=== PATIENT | female | born 1990 | race Caucasian/White ===

== ENCOUNTER 2019-04-24 20:22 | Emergency (ER) | payer BC ==
[2019-04-24] MEDS ORDERED: Sodium Chloride 0.9% 10 ML Syringe FLUSH PRN (20:52)
[2019-04-24] MEDS ORDERED: Diatrizoate Meglumine/Diatrizoate Sodium 37% 30 ML Bottle PO ONE (21:18)
--- NOTE | 2019-04-24 21:42 | EDM.PDOC ---
ED HPI GENERAL MEDICAL PROBLEM - General Chief Complaint: Abdominal Pain Stated Complaint: abdominal and back pain Time Seen by Provider: 04/24/19 20:30 Source of Information: Reports: Patient History Limitations: Reports: No Limitations - History of Present Illness INITIAL COMMENTS - FREE TEXT/NARRATIVE: Patient is a 28-year-old who comes in with chief complaint of epigastric pain states that for about a week has had increased epigastric pain there are certain foods that make it worse but also notes bothered her she says greasy foods like hamburgers make it worse. Onset: Gradual Duration: Week(s):, Getting Worse Location: Reports: Abdomen Quality: Reports: Ache, Stabbing (Radiating to the back) Severity: Moderate Improves with: Reports: None Worsens with: Reports: Eating Associated Symptoms: Reports: No Other Symptoms - Related Data Allergies Allergy/AdvReac Type Severity Reaction Status Date / Time No Known Allergies Allergy Verified 04/24/19 20:23 Home Meds: Home Meds Ibuprofen 400 mg PO ONETIME 04/24/19 [History] Past Medical History - Past Health History Medical/Surgical History: Denies Medical/Surgical History ED ROS GENERAL - Review of Systems Review Of Systems: See Below Constitutional: Reports: No Symptoms HEENT: Reports: No Symptoms Respiratory: Reports: No Symptoms Cardiovascular: Reports: No Symptoms Endocrine: Reports: No Symptoms GI/Abdominal: Reports: Abdominal Pain, Nausea, Other (Epigastric pain nausea) : Reports: No Symptoms Musculoskeletal: Reports: No Symptoms Skin: Reports: No Symptoms Neurological: Reports: No Symptoms, Pre-Existing Deficit, Other Psychiatric: Reports: No Symptoms Hematologic/Lymphatic: Reports: No Symptoms Immunologic: Reports: No Symptoms ED EXAM, GI/ABD - Physical Exam Exam: See Below Exam Limited By: No Limitations General Appearance: Alert, WD/WN, Mild Distress Eyes: Bilateral: Normal Appearance, EOMI Ears: Normal External Exam, Normal Canal, Hearing Grossly Normal, Normal TMs Nose: Normal Inspection, Normal Mucosa, No Blood Throat/Mouth: Normal Inspection, Normal Lips, Normal Teeth, Normal Gums, Normal Oropharynx, Normal Voice, No Airway Compromise Head: Atraumatic, Normocephalic Neck: Normal Inspection, Supple, Non-Tender, Full Range of Motion Respiratory/Chest: No Respiratory Distress, Lungs Clear, Normal Breath Sounds, No Accessory Muscle Use, Chest Non-Tender Cardiovascular: Normal Peripheral Pulses, Regular Rate, Rhythm, No Edema, No Gallop, No JVD, No Murmur, No Rub GI/Abdominal Exam: Normal Bowel Sounds, Soft, No Mass, Tender (Patient had a positive Richardson test) Back Exam: Normal Inspection, Full Range of Motion, NT Extremities: Normal Inspection, Normal Range of Motion, Non-Tender, Normal Capillary Refill, No Pedal Edema Neurological: Alert, Oriented, CN II-XII Intact, Normal Cognition, Normal Gait, Normal Reflexes, No Motor/Sensory Deficits Psychiatric: Normal Affect, Normal Mood Skin Exam: Warm, Dry, Intact, Normal Color, No Rash Lymphatic: No Adenopathy Course - Vital Signs Last Recorded V/S: Last Vital Signs Temp 99.1 F 04/24/19 20:31 Pulse 103 H 04/24/19 20:31 Resp 17 04/24/19 20:31 BP 108/74 04/24/19 20:31 Pulse Ox 100 04/24/19 20:31 - Orders/Labs/Meds Orders: Active Orders 24 hr Category Date Time Status Abdomen Pelvis w Cont [CT] Stat Exams 04/24/19 20:48 Taken Sodium Chloride 0.9% [Saline Flush] Med 04/24/19 20:52 Active 10 ml FLUSH ASDIRECTED PRN Saline Lock Insert [OM.PC] Stat Oth 04/24/19 20:53 Ordered Medication Orders Sodium Chloride (Saline Flush) 10 ml FLUSH ASDIRECTED PRN PRN Reason: Keep Vein Open Last Admin: 04/24/19 22:39 Dose: 10 ml Labs: Laboratory Tests 04/24/19 04/24/19 04/24/19 Range/Units 21:40 21:40 21:40 WBC 3.9 L (4.0-10.2) K/uL RBC 4.21 (3.77-5.09) M/uL Hgb 12.8 (11.7-15.5) g/dL Hct 38.5 (34.0-46.0) % MCV 91.4 (84.0-98.0) fL MCH 30.4 (28.2-33.3) pg MCHC 33.2 (31.7-36.0) g/dL RDW 12.6 (11.2-14.1) % Plt Count 167 (150-350) K/uL Neut % (Auto) 71.7 (45.0-80.0) % Lymph % (Auto) 19.7 (10.0-50.0) % [place] % (Auto) 7.3 (2.0-14.0) % Eos % (Auto) 1.0 (0.0-5.0) % Baso % (Auto) 0.3 (0.0-2.0) % Neut # (Auto) 2.76 (1.40-7.00) K/uL Lymph # (Auto) 0.76 (0.50-3.50) K/uL [place] # (Auto) 0.28 (0.00-1.00) K/uL Eos # (Auto) 0.04 (0.00-0.50) K/uL Baso # (Auto) 0.01 (0.00-0.20) K/uL Sodium 138 (136-145) mmol/L Potassium 3.2 L (3.5-5.1) mmol/L Chloride 102 (98-107) mmol/L Carbon Dioxide 25.5 (21.0-32.0) mmol/L BUN 5 L (7-18) mg/dL Creatinine 0.66 (0.51-1.17) mg/dL Est Cr Clr Drug Dosing 91.79 mL/min Estimated GFR (MDRD) > 60 mL/min Glucose 90 (74-106) mg/dL Calcium 9.3 (8.5-10.1) mg/dL Total Bilirubin 0.3 (0.2-1.0) mg/dL AST 22 (15-37) U/L ALT 14 (12-78) U/L Alkaline Phosphatase 61 (46-116) IU/L Total Protein 7.7 (6.4-8.2) g/dL Albumin 3.6 (3.4-5.0) g/dL HCG, Qual Negative (NEGATIVE) Meds: Medications Generic Name Dose Route Start Last Admin Trade Name Freq PRN Reason Stop Dose Admin Sodium Chloride 10 ml 04/24/19 20:52 04/24/19 22:39 Saline Flush FLUSH 10 ml ASDIRECTED PRN Administration Keep Vein Open Discontinued Medications Generic Name Dose Route Start Last Admin Trade Name Freq PRN Reason Stop Dose Admin Diatrizoate Meglum/Diatrizoate Sod 30 ml 04/24/19 21:18 Gastrografin 37% PO 04/24/19 21:19 ONETIME ONE Pantoprazole Sodium 40 mg/ 100 mls @ 200 mls/hr 04/24/19 22:04 Sodium Chloride IV 04/24/19 22:33 ONETIME ONE Iopamidol 100 ml 04/24/19 22:15 04/24/19 22:21 Isovue-300 (61%) IVPUSH 04/24/19 22:16 100 ml ONETIME ONE Administration Pantoprazole Sodium 40 mg 04/24/19 22:37 04/24/19 22:39 Protonix Iv IVPUSH 04/24/19 22:38 40 mg ONETIME ONE Administration Silver Sulfadiazine 1 gm 04/25/19 08:00 Silvadene 1% Cream 20 Gm TOP BID TRINITY Departure - Departure Time of Disposition: 23:13 Disposition: Home, Self-Care 01 Clinical Impression: Epigastric pain - Discharge Information *PRESCRIPTION DRUG MONITORING PROGRAM REVIEWED*: No *COPY OF PRESCRIPTION DRUG MONITORING REPORT IN PATIENT EFREN: No Referrals: Jean Fotser MD [Primary Care Provider] - Forms: ED Department Discharge Care Plan Goals: Patient was seen in the ER and examined at this time a CT of the abdomen was performed to rule out cholecystitis?cholelithiasis CT showed a contracted gallbladder with no wall thickening at this time patient is feeling better we' ll send her home on omeprazole 20 mg twice a day patient is to follow-up with primary at this time and consider getting a surgical consult for possible gastroscopy. - My Orders Last 24 Hours: My Active Orders 04/24/19 20:48 Abdomen Pelvis w Cont [CT] Stat 04/24/19 20:52 Sodium Chloride 0.9% [Saline Flush] 10 ml FLUSH ASDIRECTED PRN 04/24/19 20:53 Saline Lock Insert [OM.PC] Stat - Assessment/Plan Last 24 Hours: My Active Orders 04/24/19 20:48 Abdomen Pelvis w Cont [CT] Stat 04/24/19 20:52 Sodium Chloride 0.9% [Saline Flush] 10 ml FLUSH ASDIRECTED PRN 04/24/19 20:53 Saline Lock Insert [OM.PC] Stat
[2019-04-24 21:58] LABS: CHLORIDE,CL 102 mmol/L (98-107); SODIUM,NA 138 mmol/L (136-145)
[2019-04-24] MEDS ORDERED: Pantoprazole 40 MG in Sodium Chloride 0.9% 100 ML IV ONE (22:04)
[2019-04-24] MEDS ORDERED: Iopamidol 612 MG/ML 100 ML Bottle IVPUSH ONE (22:15)
[2019-04-24] MEDS ORDERED: Pantoprazole 40 MG Vial IVPUSH ONE (22:37)
[2019-04-25] MEDS ORDERED: Silver Sulfadiazine 1% Crm 20 GM Tube TOP SCH (08:00)
== END 2019-04-24 23:43 | disposition home or self-care (01) ==
LOC: LL.ED 20:22
DX: R10.13 Epigastric pain (principal)
CPT/HCPCS: 36415; 74177; 80053; 84703; 85025; 96374; 99284; C9113; Q9963; Q9967

== ENCOUNTER 2019-08-22 21:34 | Emergency (ER) | payer BC ==
--- NOTE | 2019-08-22 22:32 | EDM.PDOC ---
ED HPI GENERAL MEDICAL PROBLEM - General Chief Complaint: General Stated Complaint: heavy menstration Time Seen by Provider: 08/22/19 22:17 Source of Information: Reports: Patient History Limitations: Reports: No Limitations - History of Present Illness INITIAL COMMENTS - FREE TEXT/NARRATIVE: Patient comes to ER complaining of heavy menstrual bleeding today. Is on control. Admits to missing some pills monthly. 10months post-. Had similar bleeding in past when she miscarried. Did take a test a few weeks ago because she felt like she might be . It was negative. Has gone through multiple tampons/pads today. No significant cramping however. No nausea/emesis/bowel changes. No fevers. No other changes/complaints. Patient called ask a nurse about the bleeding and says that the nurse she spoke to recommended that patient come to the ER. - Related Data Allergies Allergy/AdvReac Type Severity Reaction Status Date / Time No Known Allergies Allergy Verified 08/22/19 21:51 Home Meds: Home Meds Ethinyl Estradiol/Norgestrel [Cryselle 28-Day] 1 tab PO DAILY 08/22/19 [History] Omeprazole 40 mg PO DAILY 08/22/19 [History] Past Medical History - Past Health History Medical/Surgical History: Denies Medical/Surgical History Cardiovascular History: Reports: None Respiratory History: Reports: None Gastrointestinal History: Reports: GERD Genitourinary History: Reports: UTI, Recurrent [employer] History: Reports: Musculoskeletal History: Reports: None Neurological History: Reports: None Endocrine/Metabolic History: Reports: None Hematologic History: Reports: Anemia, Blood Transfusion(s), Other (See Below) Other Hematologic History: 2008- anemia with , required blood transfusion post Oncologic (Cancer) History: Reports: None Dermatologic History: Reports: None - Infectious Disease History Infectious Disease History: Reports: Chicken Pox, Influenza - Past Surgical History HEENT Surgical History: Reports: Oral Surgery Cardiovascular Surgical History: Reports: None Respiratory Surgical History: Reports: None Female Surgical History: Reports: None Social & Family History - Tobacco Use Smoking Status *Q: Former Smoker Used Tobacco, but Quit: Yes Month/Year Tobacco Last Used: 2016 - Caffeine Use Caffeine Use: Reports: Coffee, Soda, Tea ED ROS GENERAL - Review of Systems Review Of Systems: Comprehensive ROS is negative, except as noted in HPI. ED EXAM, GENERAL - Physical Exam Exam: See Below Exam Limited By: No Limitations General Appearance: Alert, WD/WN, No Apparent Distress Eye Exam: Bilateral Eye: EOMI, PERRL Nose: No: Nasal Deformity, Nasal Swelling, Nasal Drainage Throat/Mouth: Normal Lips, Normal Voice, No Airway Compromise Head: Atraumatic, Normocephalic Neck: Supple, Non-Tender Respiratory/Chest: No Respiratory Distress GI/Abdominal: Soft, Non-Tender, No Distention (Female) Exam: Deferred Rectal (Female) Exam: Deferred Back Exam: No: CVA Tenderness (L), CVA Tenderness (R), Muscle Spasm, Paraspinal Tenderness, Vertebral Tenderness Extremities: Normal Capillary Refill Neurological: Alert, Oriented, Normal Cognition, Normal Gait Psychiatric: Normal Affect, Normal Mood Skin Exam: Warm, Dry, Intact, Normal Color Course - Vital Signs Last Recorded V/S: Last Vital Signs Temp 36.7 C 08/22/19 21:35 Pulse 106 H 08/22/19 21:35 Resp 16 08/22/19 21:35 BP 123/87 08/22/19 21:35 Pulse Ox 100 08/22/19 21:35 - Orders/Labs/Meds Labs: Laboratory Tests 08/22/19 08/22/19 Range/Units 21:55 21:55 WBC 4.4 (4.0-10.2) K/uL RBC 4.28 (3.77-5.09) M/uL Hgb 12.9 (11.7-15.5) g/dL Hct 38.9 (34.0-46.0) % MCV 90.9 (84.0-98.0) fL MCH 30.1 (28.2-33.3) pg MCHC 33.2 (31.7-36.0) g/dL RDW 13.0 (11.2-14.1) % Plt Count 248 D (150-350) K/uL Neut % (Auto) 45.9 (45.0-80.0) % Lymph % (Auto) 39.2 (10.0-50.0) % [place] % (Auto) 10.8 (2.0-14.0) % Eos % (Auto) 3.6 (0.0-5.0) % Baso % (Auto) 0.5 (0.0-2.0) % Neut # (Auto) 2.04 (1.40-7.00) K/uL Lymph # (Auto) 1.74 (0.50-3.50) K/uL [place] # (Auto) 0.48 (0.00-1.00) K/uL Eos # (Auto) 0.16 (0.00-0.50) K/uL Baso # (Auto) 0.02 (0.00-0.20) K/uL HCG, Qual Negative (NEGATIVE) - Re-Assessments/Exams Free Text/Narrative Re-Assessment/Exam: 08/22/19 22:36 CBC completely normal. Negative HCG. Patient may be having heavy bleeding that was influenced by her missing some of her pills. Cannot completely rule out that she had another given her pattern of missing some BCPs every month and that this reflects another miscarriage. Plan at this time if for her to consider observe for changes. She is to have HGB rechecked Lety AM at clinic/ER if bleeding does not significantly improve over the course of tomorrow. Referral as needed to [facility]/OBGyn depending on clinical course. To follow up in ER if worsening symptoms noted. Departure - Departure Time of Disposition: 22:29 Disposition: Home, Self-Care 01 Condition: Good Clinical Impression: Dysfunctional uterine bleeding - Discharge Information *PRESCRIPTION DRUG MONITORING PROGRAM REVIEWED*: Not Applicable *COPY OF PRESCRIPTION DRUG MONITORING REPORT IN PATIENT EFREN: Not Applicable Instructions: Abnormal Uterine Bleeding, [id number] Referrals: PCP,Unknown [Primary Care Provider] - Forms: ED Department Discharge Additional Instructions: Observe for changes as we discussed. If you have sudden severe worsening you will need to get rechecked/come to ER. If you do not see significant improvement with current level of bleeding, return Lety morning and get your hemoglobin rechecked (you can likely have that done through the clinic) and referral as needed can be done at that time.
== END 2019-08-22 22:39 | disposition home or self-care (01) ==
LOC: LL.ED 21:34
DX: N93.8 Other specified abnormal uterine and vaginal bleeding (principal); K21.9 Gastro-esophageal reflux disease without esophagitis; Z87.891 Personal history of nicotine dependence; Z79.899 Other long term (current) drug therapy
CPT/HCPCS: 36415; 84703; 85025; 99284

== ENCOUNTER 2024-01-01 05:40 | Emergency (ER) | payer BC ==
[2024-01-01 06:07] LABS: BASOPHILS ABSOLUTE AUTO 0.02 K/uL (0.00-0.20); BASOPHILS PERCENT AUTO 0.4 % (0.0-2.0); EOSINOPHILS ABSOLUTE AUTO 0.15 K/uL (0.00-0.50); EOSINOPHILS PERCENT AUTO 3.2 % (0.0-5.0); HEMATOCRIT 40.9 % (34.0-46.0); HEMOGLOBIN 13.7 g/dL (11.7-15.5); LYMPHOCYTES ABSOLUTE AUTO 1.13 K/uL (0.50-3.50); LYMPHOCYTES PERCENT AUTO 23.9 % (10.0-50.0); MEAN CORPUSCULAR HEMOGLOBIN 31.9 pg (28.2-33.3); MEAN CORPUSCULAR HGB CONC 33.5 g/dL (31.7-36.0); MEAN CORPUSCULAR VOLUME 95.1 fL (84.0-98.0); MONOCYTES ABSOLUTE AUTO 0.41 K/uL (0.00-1.00); MONOCYTES PERCENT AUTO 8.7 % (2.0-14.0); NEUTROPHILS ABSOLUTE AUTO 3.01 K/uL (1.40-7.00); NEUTROPHILS PERCENT AUTO 63.8 % (45.0-80.0); PLATELET COUNT,PLT 232 K/uL (150-350); RED CELL DISTRIBUTION WIDTH 13.4 % (11.2-14.1); WHITE BLOOD CELL COUNT,WBC 4.7 K/uL (4.0-10.2)
[2024-01-01 06:16] LABS: APPEARANCE,URINE SLIGHTLY CLOUDY; BILIRUBIN,URINE NEGATIVE (NEGATIVE); COLOR,URINE YELLOW; GLUCOSE,URINE NEGATIVE (NEGATIVE); KETONES,URINE NEGATIVE (NEGATIVE); LEUKOCYTE ESTERASE,URINE NEGATIVE (NEGATIVE); NITRITE,URINE NEGATIVE (NEGATIVE); OCCULT BLOOD,URINE NEGATIVE (NEGATIVE); PROTEIN,URINE NEGATIVE (NEGATIVE); UROBILINOGEN,URINE 0.2 E.U./dL (0.2-1.0)
[2024-01-01 06:24] LABS: ALANINE AMINOTRANSFERASE,ALT 14 U/L (12-78); ALKALINE PHOSPHATASE 68 IU/L (46-116); ANION GAP 7.8 meq/L (7-15); ASPARTATE AMNIOTRANSFERASE,AST 23 U/L (15-37); BILIRUBIN TOTAL 0.4 mg/dL (0.2-1.0); BLOOD UREA NITROGEN,BUN 13 mg/dL (7-18); CALCIUM 8.9 mg/dL (8.5-10.1); CARBON DIOXIDE,CO2 30.2 mmol/L (21.0-32.0); CHLORIDE,CL 105 mmol/L (98-107); CREATININE 0.66 mg/dL (0.51-1.17); ESTIMATED GFR 117 mL/min (>=60); GLUCOSE RANDOM 98 mg/dL (70-99); PROTEIN TOTAL,TP 7.6 g/dL (6.4-8.2); SODIUM,NA 143 mmol/L (136-145)
[2024-01-01] MEDS: Lactulose Soln 10 GM/15 ML 30 ML UD Cup PO ONE (06:46)
== END 2024-01-01 06:50 | disposition home or self-care (01) ==
LOC: LL.ED 05:40
DX: K59.00 Constipation, unspecified (principal); Z79.899 Other long term (current) drug therapy; Z86.19 Personal history of other infectious and parasitic diseases
CPT/HCPCS: 36415; 74019; 80053; 81003; 83605; 85025; 99284; A9270-GY

== ENCOUNTER 2024-05-20 09:19 | Day surgery (SDC) | payer BC ==
[~2024-05-20 09:19] MED LIST: Midazolam 1 MG/ML 2 ML SDV ONE; Propofol 200 MG/20 ML SDV ONE
[2024-05-20] MEDS ORDERED: Sodium Chloride 0.9% 10 ML Syringe FLUSH PRN (09:30)
[2024-05-20] MEDS: Lactated Ringers 1,000 ML IV SCH (09:42)
[2024-05-20] MEDS ORDERED: Midazolam 1 MG/ML 2 ML SDV ONE (09:47)
[2024-05-20] MEDS ORDERED: Lidocaine 1% 5 ML VIAL ONE (09:53)
[2024-05-20] MEDS ORDERED: Glycopyrrolate 0.2 MG/ML SDV IVPUSH ONE (09:53)
== END 2024-05-20 10:58 ==
LOC: LL.SDS 09:19
PROVIDERS: ATTEND Surgery
DX: D12.5 Benign neoplasm of sigmoid colon (principal); K59.09 Other constipation; K21.9 Gastro-esophageal reflux disease without esophagitis; K29.50 Unspecified chronic gastritis without bleeding; R14.0 Abdominal distension (gaseous); F41.9 Anxiety disorder, unspecified; Z79.899 Other long term (current) drug therapy; Z87.891 Personal history of nicotine dependence
CPT/HCPCS: 00813; 43239; 45385; J2250; J2704; J7120; J3490